=== PATIENT | female | born 1985 | race Caucasian/White ===

== ENCOUNTER → 2017-01-27 | Emergency (ER) | payer BC ==
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
[2017-01-27 19:45] VITALS: BP 124/79
== END | disposition short-term general hospital (02) ==
LOC: ER 17:44
DX: O26.892 Other specified pregnancy related conditions, second trimester (principal); S52.301A Unspecified fracture of shaft of right radius, initial encounter for closed fracture; S09.93XA Unspecified injury of face, initial encounter; V89.2XXA Person injured in unspecified motor-vehicle accident, traffic, initial encounter; Z3A.22 22 weeks gestation of pregnancy

== ENCOUNTER 2017-05-04 18:22 | Inpatient (IN) | payer SELFPAY ==
[2017-05-04] MEDS ORDERED: ONDANSETRON HCL/PF 2 MG/ML VIAL IV PRN (18:39)
[2017-05-04] MEDS ORDERED: OXYTOCIN/DEXTROSE 5%-WATER 30 UNITS/500 ML BAG IV ONE (18:39)
[2017-05-04] MEDS ORDERED: BUTORPHANOL TARTRATE 2 MG/ML VIAL IV PRN (18:39)
[2017-05-04] MEDS ORDERED: LIDOCAINE HCL 50 ML VIAL PERI PRN (18:39)
[2017-05-04] MEDS ORDERED: DEXTROSE 5%-LACTATED RINGERS 1,000 ML IV PRN (18:39)
[2017-05-04] MEDS ORDERED: RINGER'S SOLUTION,LACTATED 1,000 ML IV PRN (18:39)
[2017-05-04] MEDS ORDERED: PENICILLIN G POTASSIUM 5 MILLIONUNT in DEXTROSE 5 % IN WATER 100 ML IV SCH ×2 (19:00)
[2017-05-04] MEDS ORDERED: OXYTOCIN 10 UNITS/ML SYRG IM ONE (22:12)
[2017-05-04] MEDS ORDERED: HYDROCORTISONE 30 APPL TUBE TP PRN (22:32)
[2017-05-04] MEDS ORDERED: SENNOSIDES 8.6 MG TABLET PO PRN (22:32)
[2017-05-04] MEDS ORDERED: oxyCODONE HCL/ACETAMINOPHEN 1 TAB TABLET PO PRN (22:32)
[2017-05-04] MEDS ORDERED: BISACODYL 10 MG SUPP.RECT RC PRN (22:32)
[2017-05-04] MEDS ORDERED: BENZOCAINE/MENTHOL 81 SPRAY CAN TP PRN (22:32)
[2017-05-04] MEDS ORDERED: GLYCERIN/WITCH HAZEL LEAF 40 APPL BOX TP PRN (22:32)
--- NOTE | 2017-05-04 22:54 | OR ---
Operative Report - Dictated Report Narrative: Spontaneous Vaginal Delivery Patient came in with P PROM at 35.6 weeks, rapidly progressed in labor. One dose of PCN was given prior to delivery. Viable male with APGARS of 8 at 1 min and 9 at 5 min. He delivered at 2146. Presentation was CHANA. A tight nuchal cord was noted and was unable to be reduced. The cord was then doubly clamped and cut prior to delivery of the anterior and posterior shoulder. The baby was then placed on the maternal abdomen and dried and stimulated and spontaneous cry was noted. The MED-EL clamp was noted to be with the baby and with driving and stimulating a spot of blood was noted on mom's down. The cord clamp released from the umbilical cord and approximately 10 mls of blood was released prior to the clamping and cutting of the umbilical cord to the appropriate length. This was conveyed to the customer greeter. Weight: 6lbs 11 oz Placenta was delivered spontaneously and intact. 1st degree right paraurethral laceration that extended into the labia and a 2nd degree midline vaginal laceration that were both repaired after local anesthetic was injected. Estimated blood loss: 100 ml Mother and baby tolerated delivery well. History for MU Definition: * The number of deliveries resulting in a live the patient experienced prior to current hospitalization * The previous delivery of live twins or any live multiple gestation is considered one live event. *If primagravida or nulliparous is documented select zero for the number of previous live births. Live Events: 1
[2017-05-04] MEDS ORDERED: PENICILLIN G POTASSIUM 2.5 MILLIONUNT in DEXTROSE 5 % IN WATER 100 ML IV SCH ×2 (23:00)
[2017-05-04] MEDS: oxyCODONE HCL/ACETAMINOPHEN 1 TAB TABLET PO PRN (23:27)
[2017-05-05] MEDS: DOCUSATE SODIUM 100 MG CAPSULE PO SCH ×2 (08:07→20:41)
[2017-05-05] MEDS: IBUPROFEN 800 MG TABLET PO PRN ×2 (08:07→19:28)
--- NOTE | 2017-05-05 09:55 | PN ---
Progess Note - Interim Narrative: 05/05/17 09:54 progress note Subjective: The patient is doing well. She is ambulating, voiding, tolerating by mouth. She has minimal pain and moderate lochia. Objective: General: No acute distress Abdomen: Soft, nontender, fundus is firm just below the umbilicus Extremities: minimal edema, nontender to palpation Assessment and plan: day 1 Feeding: Breast Pain: Controlled with by mouth medication Baby is doing well, weaning off IV fluids Routine care.
[2017-05-05] MEDS: oxyCODONE HCL/ACETAMINOPHEN 1 TAB TABLET PO PRN (19:27)
[2017-05-06] MEDS: DOCUSATE SODIUM 100 MG CAPSULE PO SCH (08:30)
[2017-05-06] MEDS: oxyCODONE HCL/ACETAMINOPHEN 1 TAB TABLET PO PRN (12:01)
--- NOTE | 2017-05-06 13:46 | PN ---
Subjective - Date and Time Seen Date: 05/06/17 Subjective Narrative: day 2, s/p doing well. no complaints. . normal lochia. Objective - Vitals Vitals: Last Vital Signs Temp 36.7 C 05/06/17 08:04 Pulse 87 05/06/17 08:04 Resp 20 05/06/17 08:04 BP 117/70 05/06/17 08:04 Pulse Ox 98 05/06/17 08:04 - Exam Constitutional: Present: Alert, Oriented x3, Cooperative Respiratory: Present: no respiratory distress Abdomen: Present: soft, nontender, nondistended, other - fundus firm below umbilicus, non-tender Extremity: Present: normal range of motion, no pedal edema, no calf tenderness Skin Exam: Present: normal color, warm/dry, no cyanosis Eye contact: Present: cooperative, good eye contact, normal speech Assessment/Plan Plan Narrative: A: PPD#2, s/p , stable and well. Plan: will discharge home today. Ephraim Yost MD
[2017-05-07 01:08] VITALS: BP 122/84
== END 2017-05-06 20:00 | disposition home or self-care (01) | DRG 775 ==
LOC: OBCLINIC 18:22 → OB 18:37 → OBSVTOIN 18:37 → MS 05-06 10:51
PROVIDERS: ADMIT Obstetrics & Gynecology Gynecologic Oncology; ATTEND Obstetrics & Gynecology Gynecologic Oncology
PROC: 10E0XZZ Delivery of Products of Conception, External Approach (ICD-10-PCS; principal; 2017-05-04)
PROC: 0KQM0ZZ Repair Perineum Muscle, Open Approach (ICD-10-PCS; 2017-05-04)
PROC: 0HQ9XZZ Repair Perineum Skin, External Approach (ICD-10-PCS; 2017-05-04)
PROC: 4A1HXCZ Monitoring of Products of Conception, Cardiac Rate, External Approach (ICD-10-PCS; 2017-05-04)
DX: O69.1XX0 Labor and delivery complicated by cord around neck, with compression, not applicable or unspecified (principal); O60.14X0 Preterm labor third trimester with preterm delivery third trimester, not applicable or unspecified; O62.3 Precipitate labor; O70.1 Second degree perineal laceration during delivery; O70.0 First degree perineal laceration during delivery; Z3A.36 36 weeks gestation of pregnancy; Z37.0 Single live birth